=== PATIENT | female | born 1995 | race Caucasian/White ===

== ENCOUNTER 2022-03-13 11:31 | Outpatient (REF) | payer MEDICAID, SELFPAY | END 2022-03-13 11:32 | disposition home or self-care (01) | LOC: NCHCN 11:31 | PROVIDERS: PCP Specialist/Technologist Athletic Trainer; Visit Provider Physician Assistant Medical | DX: R30.9 Painful micturition, unspecified (principal) | CPT/HCPCS: 87077; 87086; 87186 ==